=== PATIENT | male | born 1995 | race American Indian/Alaskan Native ===

== ENCOUNTER 2017-11-16 11:59 | Emergency (ER) | payer SELFPAY ==
[2017-11-16 12:06] VITALS: PULSE 96; RESP 20; TEMP 98.3; O2SAT 98
--- NOTE | 2017-11-16 12:48 | C.PDOC ---
History Of Present Illness 22 y/o male presents to ED with complaints of headache, toothache, subjective fever, chills and malaise for 3 days. He also reports feeling tired and decreased appetite. He took Advil with little relief. Denies any injury, dizziness, vision changes, cough, chest pain or SOB. Time Seen by Provider: 11/16/17 12:29 Chief Complaint (Nursing): Flu-like Symptoms History Per: Patient, Family (mother) History/Exam Limitations: no limitations Onset/Duration Of Symptoms: Days Current Symptoms Are (Timing): Still Present Past Medical History Reviewed: Historical Data, Nursing Documentation, Vital Signs Vital Signs: Last Vital Signs Temp 98.3 F 11/16/17 12:03 Pulse 96 H 11/16/17 12:03 Resp 20 11/16/17 12:03 BP Pulse Ox 98 11/16/17 13:38 - Medical History PMH: No Chronic Diseases Surgical History: No Surg Hx Family History: States: No Known Family Hx - Social History Hx Alcohol Use: Yes Hx Substance Use: No Review Of Systems Constitutional: Positive for: Fever, Chills, Malaise Eyes: Negative for: Vision Change, Redness ENT: Positive for: Other (toothache). Negative for: Ear Pain, Throat Pain Cardiovascular: Negative for: Chest Pain Respiratory: Negative for: Cough, Shortness of Breath, Wheezing Gastrointestinal: Negative for: Nausea, Vomiting, Abdominal Pain, Diarrhea Musculoskeletal: Negative for: Neck Pain, Back Pain Skin: Negative for: Rash Neurological: Positive for: Headache. Negative for: Weakness, Numbness, Dizziness Physical Exam - Physical Exam Appears: Well, Non-toxic, No Acute Distress Skin: Warm, Dry, No Rash Head: Atraumatic, Normacephalic Eye(s): bilateral: Normal Inspection, EOMI Ear(s): Bilateral: Normal (no erythema) Nose: Normal Oral Mucosa: Moist Teeth: Caries (Multiple), No Loose, No Avulsed, Other (Right upper molar with filling intact, mild gingival inflammation surrounding tooth ) Gingiva: No Ulceration, No Bleeding, No Abscess Throat: Normal, No Erythema, No Exudate, No Drooling Neck: Normal ROM Lymphatic: Normal Exam, No Adenopathy Chest: Symmetrical Cardiovascular: Rhythm Regular, No Murmur Respiratory: Normal Breath Sounds, No Rales, No Rhonchi, No Wheezing Gastrointestinal/Abdominal: Soft, No Tenderness, No Guarding, No Rebound Extremity: Bilateral: Atraumatic, Normal Color And Temperature, Normal ROM Neurological/Psych: Oriented x3, Normal Speech Gait: Steady ED Course And Treatment O2 Sat by Pulse Oximetry: 98 (RA) Pulse Ox Interpretation: Normal Medical Decision Making Medical Decision Making: Patient with vague and multi-symptom complaints for few days. Exam shows multiple dental caries and fillings, no signs of dental abscess. No clinical signs of pneumonia or dehydration. Patient treated with Pen Vk. Advise analgesics and to follow up with dentist. Rx given. Disposition Counseled Patient/Family Regarding: Diagnosis, Need For Followup, Rx Given - Disposition Referrals: [facility] [Outside] [facility] [Outside] Disposition: HOME/ ROUTINE Disposition Time: 12:45 Condition: STABLE Additional Instructions: Take antibiotic as prescribed and follow up with dentist Take Tylenol or Motrin alternating every 4-6 hours for Fever 100.4F or higher, or for any pain Prescriptions: Ibuprofen [Motrin Tab] 600 mg PO Q12 PRN #30 tab PRN Reason: Pain, Mild (1-3) Penicillin VK [Penicillin VK Tab] 2 tab PO Q12 #28 tab Instructions: Viral Syndrome (DC), Dental Pain (DC) Forms: [employer] ([place]) - POA Present On Arrival: None - Clinical Impression Clinical Impression: Toothache, Viral syndrome - 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 - Scribe Statement The provider has reviewed the documentation as recorded by the Genieibhernandez Dior All medical record entries made by the Day were at my direction and personally dictated by me. I have reviewed the chart and agree that the record accurately reflects my personal performance of the history, physical exam, medical decision making, and the department course for this patient. I have also personally directed, reviewed, and agree with the discharge instructions and disposition.
== END 2017-11-16 12:58 | disposition home or self-care (01) ==
LOC: C.ER 11:59
DX: B34.9 Viral infection, unspecified (principal); K08.89 Other specified disorders of teeth and supporting structures

== ENCOUNTER 2018-03-09 21:33 | Emergency (ER) | payer SELFPAY ==
[2018-03-09 21:56] VITALS: BP 118/67; PULSE 98; RESP 20; TEMP 98.6; O2SAT 99
--- NOTE | 2018-03-09 22:13 | C.PDOC ---
History Of Present Illness 22 year old male with no significant PMH presents to ED with complaints of feeling tired for one week. Additionally patient reports feeling lightheaded at times, when standing has "off balance feeling". He reports working a lot about 100 hours last week and then when finally has time to rest sleeps all day. Denies any fever, joint or body pain, headache, vision changes, drug use. He additionally states he wants a checkup has not seen a doctor in long time. Time Seen by Provider: 03/09/18 21:59 Chief Complaint (Nursing): Dizziness/Lightheaded History Per: Patient History/Exam Limitations: no limitations Onset/Duration Of Symptoms: Days Current Symptoms Are (Timing): Still Present Recent travel outside of the [place]: No Past Medical History Reviewed: Historical Data, Nursing Documentation, Vital Signs Vital Signs: Last Vital Signs Temp 98.6 F 03/09/18 21:52 Pulse 98 H 03/09/18 21:52 Resp 20 03/09/18 22:23 BP 118/67 03/09/18 21:52 Pulse Ox 99 03/10/18 00:27 Family History: States: Unknown Family Hx - Social History Hx Alcohol Use: No Hx Substance Use: No - Immunization History Hx Tetanus Toxoid Vaccination: No Hx Influenza Vaccination: No Hx Pneumococcal Vaccination: No Review Of Systems Constitutional: Positive for: Other (Tired). Negative for: Fever, Chills Eyes: Negative for: Vision Change Cardiovascular: Negative for: Chest Pain, Palpitations Respiratory: Negative for: Cough, Shortness of Breath Gastrointestinal: Negative for: Nausea, Vomiting Neurological: Negative for: Headache Physical Exam - Physical Exam Appears: Non-toxic Skin: Normal Color, Warm, Dry Head: Atraumatic, Normacephalic Eye(s): bilateral: Normal Inspection Ear(s): Bilateral: TM Dull Nose: Normal Oral Mucosa: Moist Throat: Normal, No Erythema, No Exudate Neck: Normal, Supple Chest: Symmetrical, No Tenderness Cardiovascular: Rhythm Regular Respiratory: Normal Breath Sounds, No Rales, No Rhonchi, No Wheezing Gastrointestinal/Abdominal: Soft, No Tenderness Back: No CVA Tenderness Extremity: Normal ROM (x4) Neurological/Psych: Oriented x3, Normal Speech, Normal Cranial Nerves, Normal Motor, Normal Sensation Gait: Steady ED Course And Treatment O2 Sat by Pulse Oximetry: 99 (Room air) Pulse Ox Interpretation: Normal Medical Decision Making Medical Decision Making: Patient appears well, nontoxic and in no distress. Exam was benign, normal neuro. He has stable vital signs. Will give meclizine for feeling lightheaded. Advise patient he can follow up in the clinic for routine checkup Disposition Counseled Patient/Family Regarding: Diagnosis, Need For Followup, Rx Given - Disposition Referrals: Bhumi Jaramillo MD [Staff Provider] - Disposition: HOME/ ROUTINE Disposition Time: 22:12 Condition: GOOD Additional Instructions: Follow up with the clinic in 2-5 days for further evaluation. Take medications as prescribed. Return to the emergency department at any time if symptoms persist or worsen. You may call [facility] for any assistance . 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 - Scribe Statement The provider has reviewed the documentation as recorded by the Scribe Meliton Sanchez All medical record entries made by the Genieibe were at my direction and personally dictated by me. I have reviewed the chart and agree that the record accurately reflects my personal performance of the history, physical exam, medical decision making, and the department course for this patient. I have also personally directed, reviewed, and agree with the discharge instructions and disposition.
== END 2018-03-09 22:22 | disposition home or self-care (01) ==
LOC: C.ER 21:33
DX: R42 Dizziness and giddiness (principal)